=== PATIENT | female | born 2000 ===

== ENCOUNTER 2020-12-03 22:55 | Outpatient (CLI) | payer OTHER | END 2020-12-04 14:10 | disposition home or self-care (01) | LOC: OBS/DEL 22:55 | PROVIDERS: ATTEND Obstetrics & Gynecology | DX: O26.893 Other specified pregnancy related conditions, third trimester (principal); Z04.1 Encounter for examination and observation following transport accident; V49.88XA Car occupant (driver) (passenger) injured in other specified transport accidents, initial encounter; Y93.89 Activity, other specified; Y92.89 Other specified places as the place of occurrence of the external cause; Y99.8 Other external cause status ==

== ENCOUNTER 2020-12-07 05:42 | Inpatient (IN) | payer OTHER ==
[~2020-12-07] VITALS: Ht 177.8 cm; Wt 109.3 kg
[2020-12-08] MEDS ORDERED: PRENATAL + DHA1 EAC1 PO (11:04)
== END 2020-12-09 16:53 | disposition home or self-care (01) | DRG 805 ==
LOC: LDR 05:42 → OB/GYN 05:42
PROVIDERS: ADMIT Obstetrics & Gynecology; ATTEND Obstetrics & Gynecology
PROC: 10E0XZZ Delivery of Products of Conception, External Approach (ICD-10-PCS; principal; 2020-12-07)
PROC: 4A1HXFZ Monitoring of Products of Conception, Cardiac Rhythm, External Approach (ICD-10-PCS; 2020-12-07)
DX: O42.013 Preterm premature rupture of membranes, onset of labor within 24 hours of rupture, third trimester (principal); O60.14X0 Preterm labor third trimester with preterm delivery third trimester, not applicable or unspecified; Z37.0 Single live birth; Z3A.36 36 weeks gestation of pregnancy

== ENCOUNTER 2022-01-17 12:30 | Inpatient (IN) | payer OTHER ==
[~2022-01-17] VITALS: Ht 152.4 cm; Wt 128.8 kg
[~2022-01-17 12:30] MED LIST: PRENATAL + DHA1 EAC1 PO
== END 2022-01-31 15:13 | disposition home or self-care (01) | DRG 807 ==
LOC: EDSTATUS 01-28 13:30 → LDR 01-29 06:13 → OB/GYN 01-29 06:13
PROVIDERS: ADMIT Specialist; ATTEND Specialist
PROC: 10E0XZZ Delivery of Products of Conception, External Approach (ICD-10-PCS; principal; 2022-01-29)
PROC: 4A1HXCZ Monitoring of Products of Conception, Cardiac Rate, External Approach (ICD-10-PCS; 2022-01-29)
DX: O80 Encounter for full-term uncomplicated delivery (principal); Z37.0 Single live birth; Z3A.38 38 weeks gestation of pregnancy; Z20.822 Contact with and (suspected) exposure to COVID-19